=== PATIENT | female | born 1990 | race Two or more races ===

== ENCOUNTER 2021-10-03 09:58 | Emergency (ER) | payer MEDICAID ==
[~2021-10-03] VITALS: Ht 165.1 cm; Wt 90.7 kg
[2021-10-03] MEDS ORDERED: LORazepam 2MG/ML-1ML VIAL ONE (10:35)
[2021-10-03] MEDS ORDERED: LORazepam 2MG/ML-1ML VIAL IV ONE (10:45)
[2021-10-03] MEDS ORDERED: SODIUM CHLORIDE 0.9% 1,000 ML IV ONE ×2 (10:45)
[2021-10-03 11:06] LABS: Basophils # (auto) 0 10 ^3/uL (0-0.2); Basophils % (auto) 0.2 % (0.0-2.0); Eosinophils # (auto) 0.2 10 ^3/uL (0-0.8); Eosinophils % (auto) 2.4 % (0.0-7.0); Hematocrit 42.5 % (36.0-46.0); Hemoglobin 13.9 g/dL (12.2-16.2); Lymphocytes # (auto) 1.2 10 ^3/uL (0.4-5.4); Lymphocytes % (auto) 18.1 % (10.0-50.0); Mean Corpuscular Hemoglobin 29.6 pg (28.0-32.0); Mean Corpuscular Hgb Conc. 32.6 g/dL (32.0-36.0); Mean Corpuscular Volume 90.7 fL (80.0-100.0); Monocytes # (auto) 0.4 10 ^3/uL (0-1.3); Monocytes % (auto) 5.8 % (0.0-12.0); Neutrophils % (auto) 73.5 % (37.0-80.0); Nucleated Red Blood Cells % 0.1 %; Red Blood Cells 4.69 10^6/uL (4.0-5.20); Red Cell Distribution Width 13.2 % (11.8-14.3); White Blood Cell 6.9 10^3/uL (4.4-10.8)
[2021-10-03 11:27] LABS: Albumin 3.8 g/dL (3.4-5.0); Calcium 9.1 mg/dL (8.5-10.1); Potassium 3.7 mmol/L (3.5-5.1)
[2021-10-03 11:31] LABS: Bilirubin, Total 0.3 mg/dL (0.2-1.0); Total Protein 7.5 g/dL (6.4-8.2)
[2021-10-03 14:08] LABS: Urine Bacteria NONE SEEN /hpf (None Seen); Urine Blood 3+ /uL (Negative); Urine Specific Gravity 1.004 (1.001-1.035); Urine WBC 22 /hpf (0 - 5)
[2021-10-03 14:22] VITALS: BP 110/78
== END 2021-10-03 14:24 | disposition home or self-care (01) ==
LOC: ER 09:58
DX: R56.9 Unspecified convulsions (principal); Z88.1 Allergy status to other antibiotic agents; W06.XXXA Fall from bed, initial encounter; Y93.89 Activity, other specified; Y92.89 Other specified places as the place of occurrence of the external cause; Y99.8 Other external cause status
CPT/HCPCS: 36415; 70450; 80053; 81001; 84484; 85025; 93005; 96360; 99285; J2060; J7030

== ENCOUNTER 2024-04-19 14:33 | Emergency (ER) | payer MEDICAID, OTHER ==
[~2024-04-19] VITALS: Ht 165.1 cm; Wt 93.7 kg
--- NOTE | 2024-04-19 15:50 | ED.PDOC ---
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 She had this repetitive movement done for a long time. This is her job. She started experiencing pain in that area. She missed work yesterday and today. She has been trying Excedrin, heating pads, without significant improvement. Denies any radiculopathy. Denies any other pain anywhere else in her body. Denies cauda equina like symptoms. There is no pain over the spinal column. Pain is worse with left rotation. Denies any fall or trauma. Pmhx: epilepsy, asthma, Pshx: denies. NKDA. HPI: Poor Historian. REVIEW OF SYSTEMS: CONSTITUTIONAL: Denies acute: fever, diaphoresis, chills, generalized weakness. HEAD: Denies acute: headache, photophobia Eyes: Denies acute: Double vision, vision loss, eye pain, eye discharge. EARS: Denies acute: tinnitus, hearing loss, ear discharge, ear pain, THROAT: Denies acute: sore throat, swelling, difficulty swallowing , pain with swallowing, change in voice. NECK: Denies acute: neck pain, neck swelling, stiff neck. HEART: Denies acute : chest pain, palpitations, LUNGS: Denies acute: SOB, wheezing, cough, hemoptysis ABDOMEN: Denies acute: abdominal pain, Nausea, Vomiting, diarrhea, melena , hematemesis, hematochezia SKIN: Denies acute: rash, redness, lesions, itchiness. EXTREMITIES: Denies acute: calf pain, numbness, tingling, weakness, denies pain in extremity. Neuro: Denies acute: focal neurological deficit, motor or sensory focal neurological deficit, tremors, seizure like activity, confusion, dizziness, change in mental status, loss of bowel or bladder function, cauda equina like symptoms. : Denies acute: dysuria, hematuria, flank pain, increase in urinary frequency. PSYCH: Denies acute: hallucination, suicidal ideation, homicidal ideation. FEMALE: Denies acute: abnormal vaginal bleeding, foul odor, unusual discharge. PHYSICAL EXAM: General: no acute distress, awake and alert. Head: normocephalic, atraumatic. Neck: supple, trachea is midline, no swelling. Throat: Normal phonation. Eyes:, no erythema, no purulent discharge, no proptosis, no icterus. Heart: regular rate, regular rhythm, no significant murmur appreciated. Lungs: no apparent respiratory distress, Able to speak in full sentences. No wheezing, no rhonchi, no crackles. No stridors Clear to auscultation bilaterally. Abdomen: non tender to palpation, non distended, soft, no guarding, no rebound, + bowel sounds. Neuro: Awake, Alert, oriented to name, self, situation, follows commands GCS=15. Speech is normal. Skin: no petechia, no purpura, no cyanosis, non-pale, not jaundice. Lower extremities: --no - Pitting edema no deformity, no focal swelling, no calf TTP. Able to raise bilateral lower extremities against resistance and hold it. Makes eye contact. moves all four extremities. Face: no apparent facial droop. 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 Was a procedure done?: No Back Pain Differential Dx Differential Diagnosis: Other (DDX included but not limited to Cauda Equina syndrome, lumbar radiculopathy, arthritis, disk herniation, sciatica, muscle strain, epidural abscess, transverse myelitis. Cord compression, spinal foraminal stenosis, spinal fractures, spondylosis, central canal stenosis, trauma, muscle sprain/strain, aneurysm/dissection, kidney stones, shingles, arthritis, Guillan Elsa, neoplasm.) X-Ray, Labs, Meds, VS Vital Signs Date Time Temp Pulse Resp B/P (MAP) Pulse Ox O2 Delivery O2 Flow Rate FiO2 04/20/24 01:50 98.0 65 18 115/78 (90) 97 98.0 04/19/24 22:45 18 Room Air* 0 21 04/19/24 22:45 97.8 79 18 116/96 (103) 100 97.8 04/19/24 15:10 98.1 106 16 131/86 (101) 98 Lab Test 04/20/24 00:12 04/19/24 23:23 Range/Units Urine Color Light-yellow Yellow Urine Clarity Turbid H Clear Urine pH 5.5 5.0-9.0 Urine Specific Andreas 1.010 1.001-1.035 Urine Protein Negative Negative Urine Ketones Negative Negative Urine Blood Negative Negative /uL Urine Nitrite Negative Negative Urine Bilirubin Negative Negative Urine Urobilinogen Normal Negative mg/dL Urine Leukocyte Esterase 1+ Negative /uL Urine RBC 2 0 - 4 /hpf Urine Microscopic WBC 6 H 0-5 /HPF Urine Squamous Epithelial Cells Few <5 /hpf Urine Bacteria None seen None Seen /hpf Urine Mucus Few None Seen Urine Glucose Normal Normal mg/dL Urine Test Negative Negative White Blood Count 7.3 4.4-10.8 10^3/uL Red Blood Count 4.47 4.0-5.20 10^6/uL Hemoglobin 13.3 12.2-16.2 g/dL Hematocrit 39.2 36.0-46.0 % Mean Corpuscular Volume 87.7 80.0-100.0 fL Mean Corpuscular Hemoglobin 29.7 28.0-32.0 pg Mean Corpuscular Hemoglobin Concent 33.9 32.0-36.0 g/dL Red Cell Distribution Width 13.9 11.8-14.3 % Platelet Count 283 140-450 10^3/uL Mean Platelet Volume 8.2 6.9-10.8 fL Neutrophils (%) (Auto) 59.3 37.0-80.0 % Lymphocytes (%) (Auto) 31.4 10.0-50.0 % Monocytes (%) (Auto) 6.1 0.0-12.0 % Eosinophils (%) (Auto) 2.5 0.0-7.0 % Basophils (%) (Auto) 0.7 0.0-2.0 % Neutrophils # (Auto) 4.3 1.6-8.6 10 ^3/uL Lymphocytes # (Auto) 2.3 0.4-5.4 10 ^3/uL Monocytes # (Auto) 0.4 0-1.3 10 ^3/uL Eosinophils # (Auto) 0.2 0-0.8 10 ^3/uL Basophils # (Auto) 0 0-0.2 10 ^3/uL Nucleated Red Blood Cells 0.0 % Sodium Level 140 136-145 mmol/L Potassium Level 3.7 3.5-5.1 mmol/L Chloride Level 109 H 98-107 mmol/L Carbon Dioxide Level 23 20-31 mmol/L Anion Gap 8 5-15 Blood Urea Nitrogen 8 L 9-23 mg/dL Creatinine 0.88 0.550-1.02 mg/dL Glomerular Filtration Rate Calc 89 >90 mL/min BUN/Creatinine Ratio 9.1 L 10.0-20.0 Serum Glucose 94 74-106 mg/dL Calcium Level 9.8 8.7-10.4 mg/dL Total Bilirubin 0.2 0.2-1.0 mg/dL Aspartate Amino Transferase (AST) 11 L 13-40 U/L Alanine Aminotransferase (ALT) 14 7-40 U/L Alkaline Phosphatase 95 46-116 U/L Creatine Kinase 49 34-145 U/L Total Protein 7.2 5.7-8.2 g/dL Albumin 4.5 3.2-4.8 g/dL [place] [address] Ph: [phone] DIAGNOSTIC IMAGING Diagnostic Imaging Report : [id number] Signed PATIENT: DENISE GAYTAN ACCT: [id number] UNIT: [id number] : 1990 LOC: ER ROOM / BED: / AGE / SEX: 33 / F ADM STATUS: REG ER SERVICE [id number] ORDERING PHYSICIAN: KHRIS TELLO DO PROCEDURE(s): ABPL - CT AB PEL WO CON-NO ORAL OR IV REASON: Left paraspinal muscle pain ORDER NUMBER(s): [id number], ACCESSION NUMBER(s): [id number] CLINICAL HISTORY: Left paraspinal muscle pain TECHNIQUE: CT of the abdomen and pelvis was performed without intravenous contrast. This exam was performed according to our departmental dose optimization program. Up-to-date CT equipment and radiation dose reduction techniques are utilized as appropriate. COMPARISON: None FINDINGS: Lower Thorax: Unremarkable. Liver and Biliary system: There is a hypodense lesion in segment 8 of the liver measuring 2.6 cm on series 2, image 12. Otherwise unremarkable. Spleen: Unremarkable. Adrenal Glands and Kidneys: Unremarkable. Pancreas and Retroperitoneum: Unremarkable. Aorta and Major Vessels: Unremarkable. Bowel, Mesentery and Peritoneal space: Normal appendix. Normal caliber small and large bowel. There is no free air or fluid collection. Pelvis: IUD in the uterus. Small cyst in the left ovary measures 2.2 cm on series 2, image 76. Urinary bladder is mildly distended. No pelvic lymphadenopathy. Abdominal wall and Osseous Structures: Mild multilevel thoracic and lumbar spondylosis. IMPRESSION: 1. No noncontrast evidence of acute abnormality. 2. Hypodense lesion in segment 8 of the liver not optimally evaluated without contrast. If there is clinical concern for primary or secondary hepatic malignancy, this could be further evaluated with contrast-enhanced MRI on a nonemergent / outpatient basis. 3. IUD in the uterus. ATED BY: HOLLY VALADEZ MD DICTATED DATE/TIME: 04/20/24125 SIGNED BY: HOLLY VALADEZ MD SIGNED DATE/TIME: 04/20/24125 CC: Time of 1ST Reevaluation: 00:00 Reevaluation 1ST: Improved Patient Education/Counseling: Diagnosis, Treatment Family Education/Counseling: Other Comments Patient presented with the above HPI.---musculoskeletal back pain---workup was initiated. patient was found with the above mentioned diagnosis. the following medications were ordered: please refer to order lists of meds and tests obtained by myself Dr. Tello. Patient ED course and VS have been stabilized. Patient has been reassessed in the ED and remained in a stable condition. Pertinent incidental findings were discussed with the patient and/or family. Patient/family voices understanding and is agreeable with plan. Patient has been observed in the ED adequate length of time to insure improvement/stability. Escalation of care considered: Consideration of escalation to observation or admission Patient was able to ambulate independently. This is likely a work related injury. Patient will follow up with worker's comp. Patient was DISCHARGED home in a stable condition. All the reports of any imaging studies that were ordered by myself were reviewed by myself. Departure 1 Departure Time of Disposition: 00:47 Impression: Primary Impression: Musculoskeletal back pain Additional Impressions: Abnormal finding on CT scan Lumbar back sprain Disposition: HOME / SELF CARE / HOMELESS Condition: Stable Additional Instructions: Additional discharge instructions: You MUST follow-up with your primary care/family doctor in 1 to 2 days. If you are unable to see your primary care/family doctor, please return to our emergency room for re-assessment and re-evaluation in 1 to 2 days. Return to the emergency room here in our facility or to the nearest ER [facility] if your symptoms change or worsen. CONSULTATIONS: you MUST Follow-up for consultation as soon as possible with: -spine/orthopedic doctor in 1-2 days. Please call for appointment. Worker's comp in 1-2 days. Please call for appointment. You MUST call the consultants office yourself to make an appointment. You may need to arrange that through your insurance and/or your primary/family doctor. If you are unable to see the financial consultant in 1 to 2 days, you must return to our emergency room (or any other ER of your choice) for re-assessment and re- evaluation. Adequate fluid hydration. No heavy lifting. Rest. Use [id number] Tylenol ibuprofen with food as instructed for pain control. You have abnormal CT scan findings and needs close follow up. This is very imp ortant. Below is a copy of your radiological report for follow up: [place] [address] Ph: [phone] DIAGNOSTIC IMAGING Diagnostic Imaging Report : [id number] Signed PATIENT: DENISE GAYTAN ACCT: [id number] UNIT: [id number] : 1990 LOC: ER ROOM / BED: / AGE / SEX: 33 / F ADM STATUS: REG ER SERVICE 0048 ORDERING PHYSICIAN: KHRIS TELLO DO PROCEDURE(s): ABPL - CT AB PEL WO CON-NO ORAL OR IV REASON: Left paraspinal muscle pain ORDER NUMBER(s): [id number], ACCESSION NUMBER(s): [id number] CLINICAL HISTORY: Left paraspinal muscle pain TECHNIQUE: CT of the abdomen and pelvis was performed without intravenous contrast. This exam was performed according to our departmental dose optimization program. Up-to-date CT equipment and radiation dose reduction techniques are utilized as appropriate. COMPARISON: None FINDINGS: Lower Thorax: Unremarkable. Liver and Biliary system: There is a hypodense lesion in segment 8 of the liver measuring 2.6 cm on series 2, image 12. Otherwise unremarkable. Spleen: Unremarkable. Adrenal Glands and Kidneys: Unremarkable. Pancreas and Retroperitoneum: Unremarkable. Aorta and Major Vessels: Unremarkable. Bowel, Mesentery and Peritoneal space: Normal appendix. Normal caliber small and large bowel. There is no free air or fluid collection. Pelvis: IUD in the uterus. Small cyst in the left ovary measures 2.2 cm on series 2, image 76. Urinary bladder is mildly distended. No pelvic lymp hadenopathy. Abdominal wall and Osseous Structures: Mild multilevel thoracic and lumbar spondylosis. IMPRESSION: 1. No noncontrast evidence of acute abnormality. 2. Hypodense lesion in segment 8 of the liver not optimally evaluated without contrast. If there is clinical concern for primary or secondary hepatic malignancy, this could be further evaluated with contrast-enhanced MRI on a nonemergent / outpatient basis. 3. IUD in the uterus. ATED BY: HOLLY VALADEZ MD DICTATED DATE/TIME: 04/20/24125 SIGNED BY: HOLLY VALADEZ MD SIGNED DATE/TIME: 04/20/24125 CC: e-Prescriptions Prednisone (Prednisone) 20 Mg Tab 20 MG PO DAILY for 5 Days, #5 CAP Prov: KHRIS TELLO DO 04/20/24 Discharged With: Self Critical Care Note Critical Care Time?: No KHRIS TELLO DO Apr 19, 2024 15:50
[2024-04-19 22:45] VITALS: RESP 18
[2024-04-19] MEDS: DexAMETHasone SOD PHOS 10MG/1ML VIAL INJ IM ONE (22:47)
[2024-04-19] MEDS: HYDROcodone-ACET 5/325MG TAB PO ONE (22:47)
[2024-04-19] MEDS: KETOROLAC TROMETH 60MG/2ML VIAL IM ONE (22:47)
[2024-04-19 23:34] LABS: Basophils # (auto) 0 10 ^3/uL (0-0.2); Basophils % (auto) 0.7 % (0.0-2.0); Eosinophils # (auto) 0.2 10 ^3/uL (0-0.8); Eosinophils % (auto) 2.5 % (0.0-7.0); Hematocrit 39.2 % (36.0-46.0); Hemoglobin 13.3 g/dL (12.2-16.2); Lymphocytes # (auto) 2.3 10 ^3/uL (0.4-5.4); Lymphocytes % (auto) 31.4 % (10.0-50.0); Mean Corpuscular Hemoglobin 29.7 pg (28.0-32.0); Mean Corpuscular Hgb Conc. 33.9 g/dL (32.0-36.0); Mean Corpuscular Volume 87.7 fL (80.0-100.0); Monocytes # (auto) 0.4 10 ^3/uL (0-1.3); Monocytes % (auto) 6.1 % (0.0-12.0); Neutrophils # (auto) 4.3 10 ^3/uL (1.6-8.6); Neutrophils % (auto) 59.3 % (37.0-80.0); Platelet Count (auto) 283 10^3/uL (140-450); Red Blood Cells 4.47 10^6/uL (4.0-5.20); Red Cell Distribution Width 13.9 % (11.8-14.3); White Blood Cell 7.3 10^3/uL (4.4-10.8)
[2024-04-19 23:50] LABS: Alanine Aminotransferase 14 U/L (7-40); Albumin 4.5 g/dL (3.2-4.8); Alkaline Phosphatase 95 U/L (46-116); Anion Gap 8 (5-15); BUN/Creatinine Ratio 9.1 (10.0-20.0); Calcium 9.8 mg/dL (8.7-10.4); Carbon Dioxide 23 mmol/L (20-31); Glucose 94 mg/dL (74-106); Potassium 3.7 mmol/L (3.5-5.1); Sodium 140 mmol/L (136-145)
[2024-04-19 23:51] LABS: Creatine Kinase IFCC 49 U/L (34-145); Total Protein 7.2 g/dL (5.7-8.2)
[2024-04-20 00:13] LABS: Aspartate Aminotransferase 11 U/L (13-40); Bilirubin, Total 0.2 mg/dL (0.2-1.0); Blood Urea Nitrogen 8 mg/dL (9-23); Chloride 109 mmol/L (98-107)
[2024-04-20 00:29] LABS: Urine Bacteria None Seen /hpf (None Seen)
[2024-04-20 00:42] LABS: Urine Blood Negative /uL (Negative); Urine Clarity Turbid (Clear); Urine Color Light-Yellow (Yellow); Urine Mucus FEW (None Seen); Urine Protein, UAD Negative (Negative); Urine Squamous Epithelial Cell FEW /hpf (<5); Urine Urobilinogen Normal (Negative); Urine WBC 6 /HPF (0-5); Urine pH 5.5 (5.0-9.0)
[2024-04-20] MEDS ORDERED: PRED20TA2 PO (00:50)
--- NOTE | 2024-04-20 01:28 | DVH ---
CLINICAL HISTORY: Left paraspinal muscle pain TECHNIQUE: CT of the abdomen and pelvis was performed without intravenous contrast. This exam was per formed according to our departmental dose optimization program. Up-to-date CT equipment and radiation dose reduction techniques are utilized as appropriate. COMPARISON: None FINDINGS: Lower Thorax: Unremarkable. Liver and Biliary system: There is a hypodense lesion in segment 8 of the liver measuring 2.6 cm on s eries 2, image 12. Otherwise unremarkable. Spleen: Unremarkable. Adrenal Glands and Kidneys: Unremarkable. Pancreas and Retroperitoneum: Unremarkable. Aorta and Major Vessels: Unremarkable. Bowel, Mesentery and Peritoneal space: Normal appendix. Normal caliber small and large bowel. There is no free air or fluid collection. Pelvis: IUD in the uterus. Small cyst in the left ovary measures 2.2 cm on series 2, image 76. Urinar y bladder is mildly distended. No pelvic lymphadenopathy. Abdominal wall and Osseous Structures: Mild multilevel thoracic and lumbar spondylosis. IMPRESSION: 1. No noncontrast evidence of acute abnormality. 2. Hypodense lesion in segment 8 of the liver not optimally evaluated without contrast. If there is c linical concern for primary or secondary hepatic malignancy, this could be further evaluated with con trast-enhanced MRI on a nonemergent / outpatient basis. 3. IUD in the uterus.
[2024-04-20 01:50] VITALS: BP 115/78; PULSE 65; RESP 18; TEMP 98; O2SAT 97
== END 2024-04-20 02:05 | disposition home or self-care (01) ==
LOC: ER 14:33
DX: S33.5XXA Sprain of ligaments of lumbar spine, initial encounter (principal); M54.9 Dorsalgia, unspecified; R93.89 Abnormal findings on diagnostic imaging of other specified body structures; G40.909 Epilepsy, unspecified, not intractable, without status epilepticus; J45.909 Unspecified asthma, uncomplicated; X58.XXXA Exposure to other specified factors, initial encounter; Y93.89 Activity, other specified; Y92.89 Other specified places as the place of occurrence of the external cause; Y99.8 Other external cause status
CPT/HCPCS: 36415; 74176; 80053; 81001; 81025; 82550; 85025; 96372; 99285; J1100; J1885